=== PATIENT | male | born 1955 | race Caucasian/White ===

== ENCOUNTER 2016-08-27 01:45 | Emergency (ER) | payer OTHER ==
[2016-08-27 09:19] VITALS: BP 134/61
== END 2016-08-27 09:19 | disposition home or self-care (01) ==
LOC: ED 01:45
DX: S30.1XXA Contusion of abdominal wall, initial encounter (principal); I10 Essential (primary) hypertension; E78.00 Pure hypercholesterolemia, unspecified; Z79.899 Other long term (current) drug therapy; W17.89XA Other fall from one level to another, initial encounter; Y93.89 Activity, other specified; Y99.8 Other external cause status; Y92.89 Other specified places as the place of occurrence of the external cause
CPT/HCPCS: J1885; Q0162